=== PATIENT | male | born 1985 | race Caucasian/White ===

== ENCOUNTER 2024-04-24 18:36 | Emergency (ER) | payer BC ==
[2024-04-24 18:53] VITALS: BP 122/95; PULSE 96; RESP 18; TEMP 98.2; BMI 26.2
== END 2024-04-24 20:54 | disposition left against medical advice (07) ==
LOC: FER 18:36
PROC: 0PSVXZZ Reposition Left Finger Phalanx, External Approach (ICD-10-PCS; principal; 2024-04-24)
DX: S63.277A Dislocation of unspecified interphalangeal joint of left little finger, initial encounter (principal); W21.03XA Struck by baseball, initial encounter; Y93.64 Activity, baseball
CPT/HCPCS: 73140-TC-LT-FY; 99283-25